=== PATIENT | female | born 1990 | race Caucasian/White ===

== ENCOUNTER 2017-08-11 14:59 | Emergency (ER) | payer OTHER ==
[~2017-08-11] VITALS: Ht 165.1 cm; Wt 53.0 kg
[2017-08-11 18:52] VITALS: BP 127/84
[2017-08-11] MEDS ORDERED: IBUPROFEN 600MG TABLET PO STA (18:54)
[2017-08-11] MEDS ORDERED: KETOROLAC 60MG/2ML VIAL IM STA (18:56)
[2017-08-11] MEDS ORDERED: CYCLOBENZAPRINE 10MG TABLET PO ONE (19:00)
== END 2017-08-11 19:07 | disposition home or self-care (01) ==
LOC: ER 14:59
DX: S02.2XXA Fracture of nasal bones, initial encounter for closed fracture (principal); S13.8XXA Sprain of joints and ligaments of other parts of neck, initial encounter; V43.62XA Car passenger injured in collision with other type car in traffic accident, initial encounter; Y93.89 Activity, other specified; Y92.411 Interstate highway as the place of occurrence of the external cause
CPT/HCPCS: 70450; 70486; 72125; 81025; 99284